=== PATIENT | female | born 2000 | race Caucasian/White ===

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

== ENCOUNTER 2019-02-20 14:26 | Outpatient (CLI) | payer MEDICAID ==
--- NOTE | 2019-02-20 15:31 | Non Stress Test Report ---
Non Stress Test Datetime Report Generated by CPN: 02/20/2019 15:31 DEMOGRAPHIC EGA NST: 35.4 INDICATION Indication for Study: Ordered by Provider Indication for Study (NST) Other: repeat from office VITAL SIGNS Temperature - NST: 97.7 Pulse - NST: 73 RESP - NST: 16 NBPSYS NST: 120 NBPDIA NST: 59 MONITORING Monitor Explained: Monitor Explained; Test Explained; Patient Verbalized Understanding Time on Monitor: 02/20/2019 14:36 Time off Monitor: 02/20/2019 14:58 NST Duration: 22 NST INTERVENTIONS NST Interventions: None Physician Notified NST: Dr Yan BABY A: [id number] BABY A Movement : Present Contraction Frequency : 0 FHR Baseline : 135 Accelerations : 15X15 Decelerations : None Variability : Moderate 6-25bpm NST Review: Meets Criteria for Reactive NST NST Review and Verified By : Reina Hawley RNC NST Results: Reactive NST REPORT Report Trigger: Send Report
== END 2019-02-20 15:00 | disposition home or self-care (01) ==
LOC: LC 14:26
PROVIDERS: ATTEND Student in an Organized Health Care Education/Training Program
DX: Z36.89 Encounter for other specified antenatal screening (principal); Z3A.35 35 weeks gestation of pregnancy
CPT/HCPCS: 59025

== ENCOUNTER 2019-03-02 10:20 | Outpatient (CLI) | payer MEDICAID ==
[2019-03-02 10:54] LABS: APPEARANCE,URINE SLIGHTLY-CLOUDY; BILIRUBIN,URINE NEGATIVE (NEGATIVE); COLOR,URINE YELLOW; GLUCOSE, URINE NEGATIVE (NEGATIVE); KETONES,URINE NEGATIVE (NEGATIVE); LEUKOCYTE ESTERASE,URINE TRACE (NEGATIVE); NITRITE,URINE NEGATIVE (NEGATIVE); PROTEIN,URINE NEGATIVE (NEGATIVE); URINE SPECIFIC GRAVITY 1.016; UROBILINOGEN,URINE NEGATIVE mg/dL (<2.0)
[2019-03-02 11:03] LABS: URINE AMPHETAMINES SCREEN NEGATIVE; URINE BARBITURATES SCREEN NEGATIVE; URINE BENZODIAZEPINES SCREEN NEGATIVE; URINE COCAINE SCREEN NEGATIVE; URINE MARIJUANA (THC) SCREEN NEGATIVE; URINE METHADONE SCREEN NEGATIVE; URINE PHENCYCLIDINE SCREEN NEGATIVE
[2019-03-02 11:22] LABS: ABSOLUTE EOSINOPHILS # (AUTO) 0.3 10^3/uL (0.0-0.6); ABSOLUTE LYMPHOCYTES (AUTO) 1.5 10^3/uL (0.5-4.7); ABSOLUTE MONOCYTES (AUTO) 0.6 10^3/uL (0.1-1.4); ABSOLUTE NEUT (AUTO) 9.3 10^3/uL (1.7-8.2); BASOPHILS % (AUTO) 0.2 % (0-2); EOSINOPHILS % (AUTO) 2.5 % (0-6); HEMATOCRIT 27.9 % (36.0-47.0); LYMPHOCYTES % (AUTO) 12.6 % (13-45); MEAN CORPUSCULAR HEMOGLOBIN 22.6 pg (27.0-33.4); MEAN CORPUSCULAR HGB CONC 32.2 g/dL (32.0-36.0); MEAN CORPUSCULAR VOLUME 70 fl (80-97); MONOCYTES % (AUTO) 4.8 % (3-13); PLATELET COUNT 190 10^3/uL (150-450); RED BLOOD COUNT 3.98 10^6/uL (3.72-5.28); RED CELL DISTRIBUTION WIDTH 16.5 % (11.5-14.0); SEGMENTED NEUTROPHILS % (AUTO) 79.9 % (42-78); TOTAL CELLS COUNTED % (AUTO) 100 %; WHITE BLOOD COUNT 11.6 10^3/uL (4.0-10.5)
[2019-03-02 11:27] LABS: UR PRO/CREAT RATIO RESULT 0.1 mg/mg (0.0-0.2); URINE CREATININE 84.3 mg/dL (16-327); URINE PROTEIN 10.4 mg/dL (<12)
--- NOTE | 2019-03-02 11:28 | Non Stress Test Report ---
Non Stress Test Datetime Report Generated by CPN: 03/02/2019 11:27 DEMOGRAPHIC EGA NST: 37.0 INDICATION Indication for Study: Ordered by Provider VITAL SIGNS Temperature - NST: 98.0 Pulse - NST: 99 RESP - NST: 16 NBPSYS NST: 133 NBPDIA NST: 68 MONITORING Monitor Explained: Monitor Explained; Test Explained; Patient Verbalized Understanding Time on Monitor: 03/02/2019 10:33 Time off Monitor: 03/02/2019 11:13 NST Duration: 40 NST INTERVENTIONS NST Interventions: PO Hydration Physician Notified NST: J. Rodríguez CNM BABY A: [id number] BABY A Movement : Present Contraction Frequency : rare FHR Baseline : 145 Accelerations : 15X15 Decelerations : None Variability : Moderate 6-25bpm NST Review: Meets Criteria for Reactive NST NST Review and Verified By : C. Meigs RN NST Results: Reactive NST COMMENTS NST Comments: J RODRÍGUEZ CNM on unit reviewing FHT strip NST REPORT Report Trigger: Send Report
[2019-03-02 11:39] LABS: ALANINE AMINOTRANSFERASE 16 U/L (5-35); ALBUMIN 3.2 g/dL (3.7-5.6); ALKALINE PHOSPHATASE 99 U/L (50-135); ANION GAP 7 (5-19); ASPARTATE AMINO TRANSFERASE 15 U/L (5-30); BILIRUBIN,DIRECT 0.2 mg/dL (0.0-0.4); BILIRUBIN,TOTAL 0.2 mg/dL (0.2-1.3); BLOOD UREA NITROGEN 4 mg/dL (7-20); CALCIUM 8.9 mg/dL (8.4-10.2); CARBON DIOXIDE 22 mmol/L (22-30); CHLORIDE 105 mmol/L (98-107); GLUCOSE 116 mg/dL (75-110); POTASSIUM 4.1 mmol/L (3.6-5.0); TOTAL PROTEIN 5.8 g/dL (6.3-8.2); URIC ACID 4.1 mg/dL (2.5-6.2)
== END 2019-03-02 11:51 | disposition home or self-care (01) ==
LOC: LC 10:20
PROVIDERS: ATTEND Obstetrics & Gynecology
PROC: 4A1HXCZ Monitoring of Products of Conception, Cardiac Rate, External Approach (ICD-10-PCS; principal; 2019-03-02)
DX: O16.3 Unspecified maternal hypertension, third trimester (principal); Z3A.37 37 weeks gestation of pregnancy
CPT/HCPCS: 36415; 59025; 80053; 80307; 81001; 82570; 83615; 84156; 84550; 85025

== ENCOUNTER 2019-03-10 01:58 | Outpatient (CLI) | payer MEDICAID ==
[2019-03-10 02:23] LABS: APPEARANCE,URINE SLIGHTLY-CLOUDY; BILIRUBIN,URINE NEGATIVE (NEGATIVE); COLOR,URINE YELLOW; GLUCOSE, URINE NEGATIVE (NEGATIVE); KETONES,URINE NEGATIVE (NEGATIVE); LEUKOCYTE ESTERASE,URINE NEGATIVE (NEGATIVE); NITRITE,URINE NEGATIVE (NEGATIVE); PROTEIN,URINE NEGATIVE (NEGATIVE); URINE SPECIFIC GRAVITY 1.013; UROBILINOGEN,URINE NEGATIVE mg/dL (<2.0)
[2019-03-10 02:44] LABS: URINE AMPHETAMINES SCREEN NEGATIVE; URINE BARBITURATES SCREEN NEGATIVE; URINE BENZODIAZEPINES SCREEN NEGATIVE; URINE COCAINE SCREEN NEGATIVE; URINE MARIJUANA (THC) SCREEN NEGATIVE; URINE METHADONE SCREEN NEGATIVE; URINE PHENCYCLIDINE SCREEN NEGATIVE
--- NOTE | 2019-03-10 03:26 | Non Stress Test Report ---
Non Stress Test Datetime Report Generated by CPN: 03/10/2019 03:26 DEMOGRAPHIC EGA NST: 38.1 INDICATION Indication for Study: Other Indication for Study (NST) Other: LC URINE RESULTS Urine Protein, NST: Negative Urine Ketones - NST: Negative Urine Glucose - NST: Negative Urine Blood - NST: Negative MONITORING Monitor Explained: Monitor Explained; Test Explained; Patient Verbalized Understanding Time on Monitor: 03/10/2019 02:13 Time off Monitor: 03/10/2019 03:08 NST Duration: 55 NST INTERVENTIONS NST Interventions: PO Hydration Physician Notified NST: Yan BABY A: [id number] BABY A Movement : Present Contraction Frequency : OCC FHR Baseline : 135 Accelerations : 15X15 Decelerations : None Variability : Moderate 6-25bpm NST Review: Meets Criteria for Reactive NST NST Review and Verified By : Becky Cm RN NST Results: Reactive NST REPORT Report Trigger: Send Report
== END 2019-03-10 03:16 | disposition home or self-care (01) ==
LOC: LC 01:58
PROVIDERS: ATTEND Student in an Organized Health Care Education/Training Program
PROC: 4A1HXCZ Monitoring of Products of Conception, Cardiac Rate, External Approach (ICD-10-PCS; principal; 2019-03-10)
DX: O26.893 Other specified pregnancy related conditions, third trimester (principal); Z3A.38 38 weeks gestation of pregnancy
CPT/HCPCS: 80307; 81005

== ENCOUNTER 2019-03-16 04:57 | Inpatient (IN) | payer MEDICAID ==
[2019-03-15 10:47] LABS: APPEARANCE,URINE SLIGHTLY-CLOUDY; BILIRUBIN,URINE NEGATIVE (NEGATIVE); COLOR,URINE AMBER; GLUCOSE, URINE NEGATIVE (NEGATIVE); KETONES,URINE TRACE mg/dL (NEGATIVE); LEUKOCYTE ESTERASE,URINE NEGATIVE (NEGATIVE); NITRITE,URINE NEGATIVE (NEGATIVE); PROTEIN,URINE 30 mg/dL (NEGATIVE)
[2019-03-15 10:50] LABS: ABSOLUTE EOSINOPHILS # (AUTO) 0.3 10^3/uL (0.0-0.6); ABSOLUTE LYMPHOCYTES (AUTO) 1.5 10^3/uL (0.5-4.7); ABSOLUTE MONOCYTES (AUTO) 0.6 10^3/uL (0.1-1.4); ABSOLUTE NEUT (AUTO) 7.6 10^3/uL (1.7-8.2); BASOPHILS % (AUTO) 0.2 % (0-2); EOSINOPHILS % (AUTO) 2.9 % (0-6); HEMATOCRIT 28.7 % (36.0-47.0); HEMOGLOBIN 9.4 g/dL (12.0-15.5); LYMPHOCYTES % (AUTO) 14.6 % (13-45); MEAN CORPUSCULAR HEMOGLOBIN 22.8 pg (27.0-33.4); MEAN CORPUSCULAR HGB CONC 32.8 g/dL (32.0-36.0); MEAN CORPUSCULAR VOLUME 70 fl (80-97); MONOCYTES % (AUTO) 6.4 % (3-13); PLATELET COUNT 194 10^3/uL (150-450); RED BLOOD COUNT 4.11 10^6/uL (3.72-5.28); RED CELL DISTRIBUTION WIDTH 17.1 % (11.5-14.0); SEGMENTED NEUTROPHILS % (AUTO) 75.9 % (42-78); TOTAL CELLS COUNTED % (AUTO) 100 %; WHITE BLOOD COUNT 9.9 10^3/uL (4.0-10.5)
[2019-03-15 10:52] LABS: ADD MANUAL MICROSCOPIC YES
[2019-03-15 10:56] LABS: BACTERIA,URINE 4+ /HPF; CALCIUM OXALATE CRYSTALS,UR FEW /HPF
[2019-03-15 11:02] LABS: URINE AMPHETAMINES SCREEN NEGATIVE; URINE BARBITURATES SCREEN NEGATIVE; URINE BENZODIAZEPINES SCREEN NEGATIVE; URINE COCAINE SCREEN NEGATIVE; URINE MARIJUANA (THC) SCREEN NEGATIVE; URINE METHADONE SCREEN NEGATIVE; URINE PHENCYCLIDINE SCREEN NEGATIVE
[2019-03-16] MEDS ORDERED: RINGERS SOLUTION,LACTATED 1,500 ML IV PRN (05:00)
[2019-03-16] MEDS ORDERED: LIDOCAINE 0.5% INJ-PF (5 MG/ML) 50 ML SDV SUBCUT PRN (05:00)
[2019-03-16] MEDS ORDERED: LACTATED RINGERS 1000 ML IV PRN (05:00)
[2019-03-16] MEDS ORDERED: CEFAZOLIN 1 GM/D5W RTU 1 GM/50 ML RTUPB IV PRN (05:00)
[2019-03-16] MEDS ORDERED: KETOROLAC TROMETHAMINE INJ/PF 30 MG/1 ML SDV ONE (08:13)
[2019-03-16] MEDS ORDERED: FENTANYL CITRATE INJ/PF 100 MCG/2 ML AMPUL ONE (08:13)
[2019-03-16] MEDS ORDERED: OXYTOCIN 10 UNIT/ML VIAL ONE (08:13)
[2019-03-16] MEDS ORDERED: ONDANSETRON HCL INJ/PF 4 MG/2 ML SDV ONE (08:14)
[2019-03-16] MEDS ORDERED: METHYLERGONOVINE MALEATE INJ/PF 0.2 MG/1 ML AMPULE ONE (08:14)
[2019-03-16] MEDS ORDERED: ACETAMINOPHEN 1,000 MG/100 ML RTUPB IV ONE (08:14)
[2019-03-16] MEDS ORDERED: CEFAZOLIN INJ 1 GM VIAL ONE (08:30)
[2019-03-16] MEDS ORDERED: CEFAZOLIN SODIUM 2 GM in DEXTROSE 5%-WATER 50 ML IV PRN (10:13)
--- NOTE | 2019-03-16 10:13 | Brief Operative Note ---
BRIEF OPERATIVE REPORT DATE OF SURGERY: 03/16/19 TIME OF SURGERY: 09:00 PREOPERATIVE DIAGNOSIS: , 39+0ega, History of section, Teen , VSD, Maternal Obesity, Iron/B12 Deficiency, GBS pos POSTOPERATIVE DIAGNOSIS: NAT - uterine window SURGEON: ROSANGELA HERRING FINDINGS: normal uterus, normal tubes/ovaries, Uterine window - no incision made in uterus, uterine window with prolapsing membranes in lower uterine segment expanded to deliver , VFI delivered at 0901, Weight 3780g, Apgars 8/9. Nuchal cord times one. IVF 1600ml, UOP 125ml COMPLICATIONS: Uterine window with prolapsing membranes ESTIMATED BLOOD LOSS: 860 TISSUE REMOVED OR ALTERED: placenta and cord not sent TECHNICAL PROCEDURE: Repeat section
[2019-03-16] MEDS ORDERED: ACETAMINOPHEN 1,000 MG/100 ML RTUPB IV PRN (10:15)
[2019-03-16] MEDS ORDERED: MEASLES,MUMPS&RUBELLA VACC/PF 0.5 ML VIAL SUBCUT PRN (10:15)
[2019-03-16] MEDS ORDERED: DIPH/PERTUSS(ACELL)/TETANUS VAC/PF 0.5 ML SYR (>=10YO) IM PRN (10:15)
[2019-03-16] MEDS ORDERED: PROMETHAZINE HCL INJ 25 MG/1 ML VIAL IV PRN (10:15)
[2019-03-16] MEDS ORDERED: NORMAL SALINE 1000 ML 1,000 ML IV PRN (10:15)
[2019-03-16] MEDS ORDERED: ACETAMINOPHEN 325 MG TABLET PO PRN (10:15)
[2019-03-16] MEDS ORDERED: OXYCODONE-ACETAMINOPHEN 5-325 MG TABLET PO PRN (10:15)
[2019-03-16] MEDS ORDERED: OXYTOCIN/NORMAL SALINE 20 UNIT/1,000 ML RTUINJ IV PRN (10:15)
[2019-03-16] MEDS ORDERED: RINGERS SOLUTION,LACTATED 1,000 ML IV PRN (10:15)
--- NOTE | 2019-03-16 10:25 | PDOC DELIVERY SUMMARY ---
Delivery Summary - Maternal Hx : II Hx Para: I Hx # Term Pregnancies: 1 Hx # Pregnancies: 0 Hx Total # of Abortions (Sponateous & Elective): 0 Number of Living Children: 1 MISSY: 03/23/19 Gestational Age: 39 weeks Risk Factors: Previous Ruptured Membranes: AROM Time of Rupture: 09:00 Fluids: Clear - Delivery Labor: Not In Labor Presentation: Vertex Heart Rate Monitoring: Done Pre-Operatively Uterine Contraction Monitoring: External Support Person Present: Yes : Scheduled, Repeat Placenta: Within Normal Limits Placenta Description: normal Number of Vessels (Cord): 3 Nuchal Cord: Yes Delivery of Placenta Date: 03/16/19 Delivery of Placenta Time: 09:02 Estimated Blood Loss: 860 Delivery Quantitative Blood Loss (QBL): 860 - Medications Type of Anesthesia:: Spinal - Infant Assess and Care Baby 1 Female Delivery of Date: 03/16/19 Delivery of Time: 09:01 at 1 minute: 8 at 5 minutes: 9 Preprinted Number On Band: [id number] Infant Skin to Skin: No [facility] Weight: 3,780 Infant Delivery Length: 20.5 in - Delivery Personnel OPTOMETRIC ASSISTANT: MANNY GOETZ RN: MILADY NAYLOR MD: ROSANGELA HERRING
--- NOTE | 2019-03-16 10:44 | Operative Report ---
Operative Report DATE OF SURGERY: 03/16/19 PREOPERATIVE DIAGNOSIS: , 39+0ega, History of section, Teen pre gnancy, VSD, Maternal Obesity, Iron/B12 Deficiency, GBS pos POSTOPERATIVE DIAGNOSIS: NAT - uterine window OPERATION: Repeat section SURGEON: ROSANGELA HERRING ANESTHESIA: Spinal TISSUE REMOVED OR ALTERED: placenta and cord not sent COMPLICATIONS: Uterine window ESTIMATED BLOOD LOSS: 860 INTRAOPERATIVE FINDINGS: normal uterus, normal tubes/ovaries, Uterine window - no incision made in uterus, uterine window with prolapsing membranes in lower uterine segment expanded to deliver infant, VFI delivered at 0901, Weight 3780g, Apgars 8/9. Nuchal cord times one. IVF 1600ml, UOP 125ml PROCEDURE: Anesthesia provider: [Marii KOCH, Esme Carrasquillo CRNA] Urine output: [125ml] IV fluids: [1600ml] Indications: [18yo at 39+0ega presents for repeat section. She was counseled and declined TOLAC. She plans for IUD for contraception. Her prior section was for macrosomia. The risks, benefits, and alternatives were reviewed and she desires to proceed with planned procedure. ] Procedure: The patient was taken to the operating room where spinal anesthesia was obtained and found to be adequate. She was then prepped and draped in the normal sterile fashion and placed in the dorsal supine position with a leftward tilt. A Pfannenstiel skin incision was then made and carried through to the underlying layers of the fascia with the scalpel. The fascia was incised in the midline and the incision extended laterally with the Mcdowell scissors. The superior aspect of the fascial incision was then grasped with Piter clamps elevated and the underlying rectus muscles dissected off [bluntly]. Attention was then turned to the inferior aspect of the fascial incision which in a similar fashion was grasped, tented up with Piter clamps, and the rectus muscles dissected off [bluntly]. The rectus muscles were then in the midline and the peritoneum at the amount identified and entered [bluntly]. The peritoneal incision was then extended superiorly and inferiorly with good visualization of the bladder. The bladder blade was inserted and the vesicouterine peritoneum identified grasped with Tongan pickups and entered sharply with the Metzenbaum scissors. This incision was then extended laterally with the Metzenbaum scissors and a bladder flap created digitally. Prolapsing membranes from uterine window immediately noted through approximately 2cm uterine window in the lower uterine segment. No uterine incision required and this window was just extended. The bladder blade was removed and the infant's head was delivered from cephalic presentation atraumatically. The nose and mouth were suctioned and the cord doubly clamped and cut. And the was handed off to waiting pediatricians. The placenta was then delivered spontaneously and the uterus exteriorized and cleared of all clots and debris. The uterine incision was then repaired with 1- 0 Vicryl in a running locked fashion. A second layer of the same suture was used to obtain hemostasis via imbrication of the initial layer. The bladder flap was then repaired with 3-0 chromic in a running fashion. The uterus was returned to the patient's abdomen and surgicel placed for hemostasis and Interceed was placed overlying the uterine incision to prevent adhesions. The gutters were cleared of all clots and debris. All operative sites were noted to be hemostatic. The fascia was reapproximated with 0 Vicryl in a running fashion from each lateral edge to the midline. The skin was closed with 3-0 Monocryl in a running subcuticular fashion with overlying Dermabond for additional dressing as well as wound closure. The patient tolerated the procedure well. Sponge lap needle and instrument counts are correct times 2. 3 g of Ancef were given prior to skin incision. The patient was taken to the recovery area awake and in stable condition.
[2019-03-16] MEDS ORDERED: HYDROMORPHONE HCL INJ/PF 2 MG/ML AMPULE ONE (11:08)
[2019-03-16] MEDS: HYDROMORPHONE HCL INJ/PF 2 MG/ML AMPULE IV PRN ×2 (11:09→20:27)
[2019-03-16] MEDS: OXYCODONE-ACETAMINOPHEN 5-325 MG TABLET PO PRN ×2 (12:48→17:02)
[2019-03-16] MEDS: KETOROLAC TROMETHAMINE INJ/PF 30 MG/1 ML SDV IV SCH (15:06)
[2019-03-16] MEDS: DOCUSATE SODIUM 100 MG CAPSULE PO SCH (17:02)
[2019-03-17] MEDS: KETOROLAC TROMETHAMINE INJ/PF 30 MG/1 ML SDV IV SCH (00:18)
[2019-03-17] MEDS: HYDROMORPHONE HCL INJ/PF 2 MG/ML AMPULE IV PRN (04:24)
[2019-03-17] MEDS: IBUPROFEN 800 MG TABLET PO SCH ×4 (05:25→23:49)
[2019-03-17 06:39] LABS: MEAN CORPUSCULAR HEMOGLOBIN 22.3 pg (27.0-33.4); MEAN CORPUSCULAR VOLUME 70 fl (80-97); PLATELET COUNT 168 10^3/uL (150-450); RED BLOOD COUNT 3.58 10^6/uL (3.72-5.28); RED CELL DISTRIBUTION WIDTH 17.1 % (11.5-14.0); WHITE BLOOD COUNT 11.8 10^3/uL (4.0-10.5)
[2019-03-17] MEDS: OXYCODONE-ACETAMINOPHEN 5-325 MG TABLET PO PRN ×3 (09:57→21:50)
[2019-03-17] MEDS: PRENATAL VITAMIN W DHA CAPSULE PO SCH (09:57)
[2019-03-17] MEDS: DOCUSATE SODIUM 100 MG CAPSULE PO SCH ×2 (09:57→18:43)
[2019-03-17] MEDS: FERROUS SULFATE 325 MG TABLET PO SCH ×2 (11:20→18:43)
[2019-03-17] MEDS: SIMETHICONE 80 MG TAB.CHEW PO PRN ×2 (11:49→21:58)
--- NOTE | 2019-03-17 17:03 | PDOC PROGRESS REPORT ---
Subjective-OB Progress Note for:: 03/17/19 - late entry 1100 Subjective: reports bleeding slowing, pain controlled with current meds, denies needs. + passing gas. aware of op note and need for delivery at 37 via c/s with next . states she is not planning on having any more children Physical Exam (OB) Vital Signs: Temp Pulse Resp BP Pulse Ox 98.2 F 80 16 122/59 L 99 03/17/19 07:29 03/17/19 07:29 03/17/19 07:29 03/17/19 07:29 03/17/19 07:29 Intake & Output 03/16/19 03/17/19 03/18/19 06:59 06:59 06:59 Intake Total 1216 Output Total 800 Balance 416 Weight 127.006 kg - Dressing Removed: No Incision: Well Approximated Closure Type: Surgical Glue - Abdomen Description: Tender, Soft Hernia Present: No Fundal Description: Firm, Midline Fundal Height: u/u - u/2 - Abdominal Inspection: Normal Distension: No distension Tenderness: Nontender - Extremities Lower extremities: Alisa's sign - neg Calf: Normal, Nontender Objective-Diagnostic Laboratory: 03/17/19 06:01 03/17/19 06:01 WBC 11.8 H RBC 3.58 L Hgb 8.0 L Hct 25.0 L MCV 70 L MCH 22.3 L MCHC 32.0 RDW 17.1 H Plt Count 168 Assessment and Plan(PN) - Assessment and Plan (1) Dehiscence of old uterine scar without extension before onset of labor, antepartum Is this a current diagnosis for this admission?: Yes (2) History of delivery Is this a current diagnosis for this admission?: Yes (3) S/P repeat low transverse Is this a current diagnosis for this admission?: Yes - Time Spent with Patient Time with patient: Less than 15 minutes Medications reviewed and adjusted accordingly: Yes - Disposition Anticipated Discharge: Home Within: within 24 hours
[2019-03-18] MEDS: IBUPROFEN 800 MG TABLET PO SCH ×2 (05:12→12:26)
[2019-03-18 08:22] VITALS: BP 129/62
--- NOTE | 2019-03-18 10:04 | PDOC DISCHARGE SUMMARY ---
Final Diagnosis Discharge Date: 03/18/19 - Final Diagnosis (1) Dehiscence of old uterine scar without extension before onset of labor, antepartum Is this a current diagnosis for this admission?: Yes (2) History of delivery Is this a current diagnosis for this admission?: Yes (3) S/P repeat low transverse Is this a current diagnosis for this admission?: Yes Discharge Data - Discharge Medication Prescriptions: Ibuprofen [Motrin 800 mg Tablet] 800 mg PO Q8HP PRN #60 tablet PRN Reason: Oxycodone HCl/Acetaminophen [Percocet 5-325 mg Tablet] 1 tab PO Q4HP PRN #30 tablet PRN Reason: Home Medications: Vit/Iron Fum/Folic AC [ Tablet] 1 each PO DAILY 03/08/17 Ferrous Sulfate [Iron] 325 mg PO BID 12/25/18 Docusate Sodium [Colace 100 mg Capsule] 100 mg PO BID capsule 03/18/19 Ibuprofen [Motrin 800 mg Tablet] 800 mg PO Q8HP PRN #60 tablet 03/18/19 Oxycodone HCl/Acetaminophen [Percocet 5-325 mg Tablet] 1 tab PO Q4HP PRN #30 tablet 03/18/19 Procedures: NST Intrapartum Procedure(s): : Low Cervical, Transverse - Diagnosis Test Laboratory: Temp Pulse Resp BP Pulse Ox 98.5 F 100 H 15 129/62 H 100 03/18/19 08:20 03/18/19 08:20 03/18/19 08:20 03/18/19 08:20 03/18/19 08:20 03/15/19 03/15/19 03/17/19 09:53 09:58 06:01 RBC 4.11 3.58 L Hgb 9.4 L 8.0 L Hct 28.7 L 25.0 L Urine Opiates Screen NEGATIVE - Discharge information/Instructions Discharge Activity: Balance Activity w/Rest, Pelvic Rest Discharge Diet: Regular Disposition: HOME, SELF-CARE Follow up with: [facility] in: 1, Weeks
[2019-03-18] MEDS: PRENATAL VITAMIN W DHA CAPSULE PO SCH (10:25)
[2019-03-18] MEDS: FERROUS SULFATE 325 MG TABLET PO SCH (10:25)
[2019-03-18] MEDS: DOCUSATE SODIUM 100 MG CAPSULE PO SCH (10:25)
== END 2019-03-18 12:35 | disposition home or self-care (01) | DRG 788 ==
LOC: 2S 04:57
PROVIDERS: ADMIT Obstetrics & Gynecology Gynecology; ATTEND Obstetrics & Gynecology Gynecology
PROC: 10D00Z1 Extraction of Products of Conception, Low, Open Approach (ICD-10-PCS; principal; 2019-03-16 08:00)
DX: O34.211 Maternal care for low transverse scar from previous cesarean delivery (principal); N85.8 Other specified noninflammatory disorders of uterus; O34.593 Maternal care for other abnormalities of gravid uterus, third trimester; O99.214 Obesity complicating childbirth; O69.81X0 Labor and delivery complicated by cord around neck, without compression, not applicable or unspecified; E66.9 Obesity, unspecified; O94 Sequelae of complication of pregnancy, childbirth, and the puerperium; O99.824 Streptococcus B carrier state complicating childbirth; Z37.0 Single live birth
CPT/HCPCS: 1961; 36415; 59025; 80307; 81001; 85025; 85027; 86850; 86900; 86901; 94799; C1765; J0131; J0690; J1170; J1885; J2210; J2405; J2590; J3010; J3490; J7120

== ENCOUNTER → 2020-08-11 | Outpatient (CLI) | payer MEDICAID | LOC: OD 15:50 | PROVIDERS: ATTEND Obstetrics & Gynecology Gynecology | DX: Z32.02 Encounter for pregnancy test, result negative (principal); N91.2 Amenorrhea, unspecified | CPT/HCPCS: 36415; 84702 ==